=== PATIENT | male | born 1970 | race Two or more races ===

== ENCOUNTER 2017-01-16 00:31 | Emergency (ER) | payer OTHER ==
[~2017-01-16] VITALS: Ht 188 cm; Wt 104.3 kg
--- NOTE | 2017-01-16 00:40 | NUR ---
to bed 4 ambulatory c/o L flank pain since yesterday morning. pt aaox4 no acute distress noted, resp even and unlabored. place pt on cardiac mohnitoring, continuous pox. pending er md dyer. pt unable to provide urine sample at this time.
--- NOTE | 2017-01-16 01:03 | NUR ---
er md at bedside to eval pt with orders received. will carry out orders.
--- NOTE | 2017-01-16 01:11 | NUR ---
Josué randhawa in EDM - 01/16/17 at 0318 by [email or web address] pt still c/o L flank pain 05/18. espinoza cope made aware with orders received. mickey carry out orders.
[2017-01-16] MEDS ORDERED: HYDROMORPHONE 1 MG/1 ML DISP.SYRIN ONE ×2 (01:18→02:12)
[2017-01-16] MEDS ORDERED: IV SET PRIMARY 1 EA INFUS.SET MC ONE ×3 (01:18→04:01)
[2017-01-16] MEDS ORDERED: ONDANSETRON HCL/PF 4 MG/2 ML VIAL ONE ×2 (01:18→03:12)
[2017-01-16] MEDS ORDERED: IV NS 0.9% 1,000 ML ONE ×4 (01:18→04:33)
--- NOTE | 2017-01-16 01:23 | NUR ---
rn at bedside to medicate pt.
[2017-01-16] MEDS ORDERED: IV NS 0.9% 1,000 ML BAG IV ONE ×4 (01:30→05:00)
[2017-01-16] MEDS ORDERED: HYDROMORPHONE INJ 2 MG/ML DISP.SYRIN IV ONE (01:30)
[2017-01-16] MEDS ORDERED: ONDANSETRON HCL/PF 4 MG/2 ML VIAL IVP ONE (01:30)
--- NOTE | 2017-01-16 02:11 | NUR ---
pt still c/o L flank pain 05/18. er md made aware with orders received. mickey carry out orders.
--- NOTE | 2017-01-16 02:17 | NUR ---
rn at bedside to medicate pt.
--- NOTE | 2017-01-16 02:21 | NUR ---
pt transported to radiology for ct abd/pelvis.
[2017-01-16] MEDS ORDERED: HYDROMORPHONE 1 MG/1 ML DISP.SYRIN IV ONE (02:30)
--- NOTE | 2017-01-16 02:51 | NUR ---
espinoza cope at bedside to re-eval pt.
[2017-01-16 02:56] LABS: BASOPHILS % (AUTO) 0.3 % (0.0-2.0); EOSINOPHILS # (AUTO) 0.1 /CMM (0.0-0.7); EOSINOPHILS % (AUTO) 1.3 % (0.0-6.0); HEMATOCRIT 43 % (39-51); HEMOGLOBIN 15.1 g/dL (13.5-17.5); LYMPHOCYTES # (AUTO) 1.9 /CMM (0.8-4.8); LYMPHOCYTES % (AUTO) 20.4 % (20.0-44.0); MEAN CORPUSCULAR HEMOGLOBIN 29 PG (26.0-33.0); MEAN CORPUSCULAR HGB CONC 35 g/dl (31.0-36.0); MEAN CORPUSCULAR VOLUME 82 fL (80-96); MONOCYTES # (AUTO) 0.8 /CMM (0.1-1.30); MONOCYTES % (AUTO) 8.2 % (2.0-12.0); NEUTROPHILS # (AUTO) 6.4 /CMM (1.8-8.9); NEUTROPHILS % (AUTO) 69.8 % (43.0-81.0); PLATELET COUNT (AUTO) 180 /CMM (150-450); RDW COEFFICIENT OF VARIATION 13.3 (11.5-15.0); RED BLOOD CELL COUNT(AUTO) 5.28 MIL/uL (4.5-6.0); WHITE BLOOD COUNT (AUTO) 9.2 K/uL (4.3-11.0)
[2017-01-16 03:02] LABS: CALCIUM, SERUM 8.7 mg/dL (8.5-10.1); CREATININE 1.2 mg/dL (0.6-1.3); POTASSIUM 3.8 mmol/L (3.5-5.1)
[2017-01-16 03:07] LABS: ALBUMIN 3.6 g/dL (3.4-5.0); BILIRUBIN,DIRECT 0.1 mg/dL (0.0-0.2); BILIRUBIN,TOTAL 0.6 mg/dL (0.2-1.0)
[2017-01-16 03:08] LABS: INR 1.05 (0.87-1.13); PROTHROMBIN TIME 11.3 SECS (9.5-12.7)
--- NOTE | 2017-01-16 03:16 | NUR ---
pt c/o nausea. er md made aware with orders received. rn at bedside to medicate pt.
[2017-01-16] MEDS ORDERED: ONDANSETRON HCL/PF 4 MG/2 ML VIAL IV ONE (03:30)
[2017-01-16] MEDS ORDERED: SECONDARY IV SET 1 EA INFUS.SET MC ONE (04:33)
[2017-01-16 05:30] LABS: APPEARANCE,URINE CLEAR (CLEAR); BILIRUBIN,URINE NEGATIVE (NEGATIVE); BLOOD, URINE NEGATIVE Ery/uL (NEGATIVE); COLOR,URINE YELLOW (YELLOW); KETONES,URINE NEGATIVE (NEGATIVE); LEUKOCYTE ESTERASE ,URINE NEGATIVE (NEGATIVE); NITRITE, URINE NEGATIVE (NEGATIVE); PROTEIN,URINE NEGATIVE (NEGATIVE); UGLUCOSE NEGATIVE (NEGATIVE); UROBILINOGEN,URINE 0.2 EU/dL (0.2)
[2017-01-16 05:44] VITALS: BP 127/75
--- NOTE | 2017-01-16 05:44 | NUR ---
IV removed. Catheter intact and site benign. Pressure and 4x4 applied to site. No bleeding noted. Patient discharged to home in stable condition. Written and verbal after care instructions given. Patient verbalizes understanding of instruction. ambulatory with a steady gait noted. pt aaox4 no acute distress noted, resp even and unlabored. advice pt not to drive or operate any machinery due to pt was given narcotic medicine. pt verbalize understanding. pt s/o at bedside to take pt home.
== END 2017-01-16 05:44 | disposition home or self-care (01) ==
LOC: ER 00:34
DX: R10.9 Unspecified abdominal pain (principal); Z90.89 Acquired absence of other organs; Z87.442 Personal history of urinary calculi
CPT/HCPCS: 36415; 74176; 80048; 80076; 81001; 83690; 85025; 85610; 96361; 96374; 96375; 96376; 99285; A4606; J1170 ×2; J2405 ×2; J7030 ×3; Z7610; 81000-TC